=== PATIENT | male | born 1980 | race African-American/Black ===

== ENCOUNTER 2024-08-03 17:35 | Emergency (ER) | payer MEDICAID, OTHER ==
[~2024-08-03] VITALS: Ht 177.8 cm; Wt 120.0 kg
[2024-08-03 17:39] VITALS: BP 0/0; PULSE 0; RESP 0; O2SAT 90
== END 2024-08-03 18:01 ==
LOC: ER 17:35
DX: I46.9 Cardiac arrest, cause unspecified (principal)
CPT/HCPCS: 31500; 92950; 99285